=== PATIENT | male | born 1980 | race Two or more races ===

== ENCOUNTER 2021-02-27 22:58 | Emergency (ER) | payer MEDICAID ==
[~2021-02-27] VITALS: Ht 175.3 cm; Wt 86.0 kg
[2021-02-27 23:17] VITALS: BP 112/78
[2021-02-27] MEDS ORDERED: LORAZEPAM 2MG/ML CPJ IM PRN (23:45)
[2021-02-28] MEDS ORDERED: OLANZAPINE 10 MG/VIAL IM STA (00:43)
[2021-02-28] MEDS ORDERED: LORAZEPAM 2MG/ML CPJ IM STA (00:43)
[2021-02-28 00:54] LABS: HEMOGLOBIN. 13.9 g/dL (14.0-18.0); MEAN CORPUSCULAR HEMOGLOBIN 26.7 pg (28.0-32.0); MEAN CORPUSCULAR VOLUME 80.5 fL (80.0-94.0); MEAN PLATELET VOLUME 8.9 fl (7.4-10.4); PLATELET 228 x1000/uL (130-400); RED BLOOD CELL COUNT 5.22 mill/uL (4.7-6.1); RED CELL DISTRIBUTION WIDTH 13.6 % (11.6-14.6)
[2021-02-28 00:56] LABS: CLARITY URINE CLOUDY (CLEAR); COLOR URINE YELLOW (YELLOW); KETONES URINE 1+ (NEGATIVE); LEUKOCYTE ESTERASE URINE NEGATIVE (NEGATIVE); NITRITE URINE NEGATIVE (NEGATIVE); OCCULT BLOOD URINE 1+ (NEGATIVE); PH URINE 5.5 (4.5-8.0); PROTEIN URINE 2+ (NEGATIVE); SPECIFIC GRAVITY URINE 1.022 (1.005-1.030); UROBILINOGEN URINE 0.2 E.U./dL (0.2-1.0)
[2021-02-28 01:02] LABS: CHLORIDE 109 mEq/L (98-107)
[2021-02-28 01:06] LABS: ETHANOL BLOOD < 10 mg/dL
[2021-02-28 01:09] LABS: *AMPHETAMINES SCREEN URINE PRESUMTIVE POSITIVE (NEGATIVE); *BARBITURATES SCREEN URINE NEGATIVE (NEGATIVE); *BENZODIAZEPINES SCREEN URINE NEGATIVE (NEGATIVE); *COCAINE SCREEN URINE PRESUMTIVE POSITIVE (NEGATIVE); METHADONE URINE SCREEN NEGATIVE (NEGATIVE)
[2021-02-28 01:10] LABS: CANNABINOID URINE SCREEN NEGATIVE (NEGATIVE); OPIATES URINE SCREEN NEGATIVE (NEGATIVE); PHENCYCLIDINE URINE SCREEN NEGATIVE (NEGATIVE)
[2021-02-28 06:08] LABS: PLATELET ESTIMATE NORMAL
== END 2021-02-28 07:40 | disposition left against medical advice (07) ==
LOC: ER 22:58
DX: F15.129 Other stimulant abuse with intoxication, unspecified (principal)
CPT/HCPCS: 36415; 80053; 80305; 80307; 80320; 80329; 81003; 85025; 93005; 99284; G0480